=== PATIENT | male | born 1995 | race Two or more races ===

== ENCOUNTER 2024-05-28 11:52 | Emergency (ER) | payer OTHER ==
[~2024-05-28] VITALS: Ht 157.5 cm; Wt 56.7 kg
[2024-05-28] MEDS ORDERED: KETOROLAC TROMETHAMINE 10 MG TABLET PO ONE (13:15)
[2024-05-28] MEDS ORDERED: KETOROLAC TROMETHAMINE 10 MG TABLET PO PRN (13:15)
== END 2024-05-28 16:23 | disposition home or self-care (01) ==
LOC: ER 11:53
DX: R07.89 Other chest pain (principal); M94.0 Chondrocostal junction syndrome [Tietze]; B30.3 Acute epidemic hemorrhagic conjunctivitis (enteroviral)